=== PATIENT | female | born 1930 | race Caucasian/White ===

== ENCOUNTER 2017-09-15 13:53 | Inpatient (IN) | payer OTHER ==
[2017-09-15] MEDS ORDERED: NS 1,000 ML IV ONE (14:03)
--- NOTE | 2017-09-15 14:04 | EDPHY ---
H & P Source: Patient, EMS Exam Limitations: No limitations Departure - Departure Referrals: NONE *PRIMARY CARE P,. [Primary Care Provider] - As per Instructions
--- NOTE | 2017-09-15 14:19 | EDPHY ---
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 When they went back around noon they found her sitting in the kitchen staring off into space and she did not remember the previous visit. 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 She is A&O to person and place but not time. She denies having pain or injury. She denies chest pain or shortness of breath. She denies headache or trauma. She denies fevers. No obvious rashes or wounds. No focal deficits. REVIEW OF SYSTEMS: Unable to obtain secondary to condition EXAM: GENERAL: Thin and in no acute distress. HEAD: Atraumatic, normocephalic. EYES: Pupils equal round and reactive to light, extraocular movements intact, sclera anicteric, conjunctiva are normal. ENT: TMs normal, nares patent, oropharynx clear without exudates. Moist mucous membranes. NECK: Normal range of motion, supple without lymphadenopathy or JVD. LUNGS: Breath sounds clear to auscultation bilaterally and equal. No wheezes rales or rhonchi. HEART: Regular rate and rhythm without murmurs, rubs or gallops. ABDOMEN: Soft, nontender, normoactive bowel sounds. No guarding, no rebound. No masses appreciated. BACK: No CVA tenderness, no spinal tenderness, step-offs or deformities EXTREMITIES: Normal range of motion, no pitting or edema. No clubbing or cyanosis. NEUROLOGICAL: Oriented times person and place only. Trouble answering most questions Cranial nerves II through XII grossly intact. Normal speech. 5/5 strength, normal movement in all extremities, normal sensation PSYCH: Normal mood, normal affect. SKIN: Warm, dry, normal turgor, no visible rashes or lesions. Source: Patient Exam Limitations: No limitations - Personal History Current Tetanus Diphtheria and Acellular Pertussis (TDAP): Unsure - Medical/Surgical History Hx Asthma: No Hx Chronic Respiratory Disease: No Hx Diabetes: No Hx Cardiac Disease: No Hx Renal Disease: No Hx Cirrhosis: No Hx Alcoholism: No Hx HIV/AIDS: No Hx Splenectomy or Spleen Trauma: No Other PMH: HTN, dementia - Family History Significant Family History: No pertinent family hx - Social History Smoking Status: Never smoked Alcohol Use: Sober Drug Use: None Constitutional: Initial Vital Signs Temperature (C) 36.6 C 09/15/17 14:11 Heart Rate 64 09/15/17 14:11 Respiratory Rate 18 09/15/17 14:11 Blood Pressure 139/85 H 09/15/17 14:11 O2 Sat (%) 94 09/15/17 14:11 O2 Delivery Mode Room Air Allergies/Adverse Reactions: Penicillins Allergy (Verified 09/15/17 14:10) Home Medications: Medication Instructions Recorded Amlodipine Besylate 09/15/17 Atorvastatin Calcium 09/15/17 Levothyroxine 09/15/17 Medical Decision Making - Diagnostics EKG Interpretation: An EKG obtained and was read and documented in trace view. Please see trace view for full reading and report. Sinus rhythm, first-degree block, no acute ischemic changes or arrhythmia no previous for comparison Imaging Results: Imaging Impressions Chest X-Ray 09/15/17 14:03 Impression: 1. Possible cardiomegaly without failure. Marissa routine PA upright chest x-ray in the department, when the patient is clinically able, to better evaluate the heart size. 2. Airways disease. No pneumonia. 3. Atherosclerosis. 4. Severe focal scoliosis at the thoracic lumbar junction of unknown chronicity. Head CT 09/15/17 15:56 Impression: Advanced senescent features with no acute intracranial abnormality identified on this unenhanced CT evaluation. If there is further clinical concern regarding the patient's symptoms, MR imaging is suggested, if not otherwise contraindicated. Findings were discussed with RACH DUARTE MD at 16:59, on 09/15/2017. Imaging: Discussed imaging studies w/ director private music therapy [employer] Radiologist ED Course/Re-evaluation: 5:15 p.m. I discussed the case with Dr. Zheng who will admit for altered mental status. No source of infection has been found at this point. Differential Diagnosis: Partial list of the Differential diagnosis considered include but were not limited to; altered mental status, infection, generalized weakness, electrolyte abnormality and although unlikely based on the history and physical exam, I also considered intracranial hemorrhage, CVA, acute coronary disease. - Data Points Laboratory Results: Laboratory Results 09/15/17 14:28 09/15/17 14:28 09/15/17 09/15/17 09/15/17 15:21 14:28 14:28 WBC RBC Hgb Hct MCV MCH MCHC RDW Plt Count MPV Neut % (Auto) Lymph % (Auto) [place] % (Auto) Eos % (Auto) Baso % (Auto) Nucleat RBC Rel Count Absolute Neuts (auto) Absolute Lymphs (auto) Absolute Monos (auto) Absolute Eos (auto) Absolute Basos (auto) Absolute Nucleated RBC Immature Gran % Immature Gran # PT INR APTT Sodium Potassium Chloride Carbon Dioxide Anion Gap BUN Creatinine Estimated GFR Glucose Calcium Total Bilirubin Conjugated Bilirubin Unconjugated Bilirubin AST ALT Alkaline Phosphatase Troponin I 0.013 ng/mL ng/mL (0.000-0.034) Total Protein Albumin TSH 2.650 uIU/mL uIU/mL (0.465-4.680) Free T4 1.52 ng/dL ng/dL (0.59-2.19) Urine Color PALE YELLOW Urine Appearance CLEAR Urine pH 7.0 (5.0-7.5) Ur Specific [place] 1.006 (1.002-1.030) Urine Protein NEGATIVE (NEGATIVE) Urine Ketones NEGATIVE (NEGATIVE) Urine Blood NEGATIVE (NEGATIVE) Urine Nitrate NEGATIVE (NEGATIVE) Urine Bilirubin NEGATIVE (NEGATIVE) Urine Urobilinogen NEGATIVE EU EU (0.2-1.0) Ur Leukocyte Esterase NEGATIVE (NEGATIVE) Urine RBC NONE SEEN /hpf /hpf (0-3) Urine WBC NONE SEEN /hpf /hpf (0-3) Ur Epithelial Cells NONE SEEN /lpf /lpf (NONE-1+) Urine Glucose NEGATIVE (NEGATIVE) 09/15/17 09/15/17 09/15/17 14:28 14:28 14:28 WBC 6.84 10^3/uL 10^3/uL (3.80-9.50) RBC 4.66 10^6/uL 10^6/uL (4.18-5.33) Hgb 16.0 g/dL g/dL (12.6-16.3) Hct 45.6 % % (38.0-47.0) MCV 97.9 fL fL (81.5-99.8) MCH 34.3 pg H pg (27.9-34.1) MCHC 35.1 g/dL g/dL (32.4-36.7) RDW 11.5 % % (11.5-15.2) Plt Count 176 10^3/uL 10^3/uL (150-400) MPV 9.8 fL fL (8.7-11.7) Neut % (Auto) 74.3 % H % (39.3-74.2) Lymph % (Auto) 12.0 % L % (15.0-45.0) [place] % (Auto) 7.7 % % (4.5-13.0) Eos % (Auto) 5.0 % % (0.6-7.6) Baso % (Auto) 0.7 % % (0.3-1.7) Nucleat RBC Rel Count 0.0 % % (0.0-0.2) Absolute Neuts (auto) 5.08 10^3/uL 10^3/uL (1.70-6.50) Absolute Lymphs (auto) 0.82 10^3/uL L 10^3/uL (1.00-3.00) Absolute Monos (auto) 0.53 10^3/uL 10^3/uL (0.30-0.80) Absolute Eos (auto) 0.34 10^3/uL 10^3/uL (0.03-0.40) Absolute Basos (auto) 0.05 10^3/uL 10^3/uL (0.02-0.10) Absolute Nucleated RBC 0.00 10^3/uL 10^3/uL (0-0.01) Immature Gran % 0.3 % % (0.0-1.1) Immature Gran # 0.02 10^3/uL 10^3/uL (0.00-0.10) PT 13.5 SEC SEC (12.0-15.0) INR 1.04 (0.83-1.16) APTT 29.6 SEC SEC (23.0-38.0) Sodium 136 mEq/L mEq/L (134-144) Potassium 4.1 mEq/L mEq/L (3.5-5.2) Chloride 96 mEq/L L mEq/L (97-110) Carbon Dioxide 27 mEq/l mEq/l (22-31) Anion Gap 13 mEq/L mEq/L (8-16) BUN 18 mg/dL mg/dL (7-23) Creatinine 1.0 mg/dL mg/dL (0.6-1.0) Estimated GFR 53 Glucose 117 mg/dL H mg/dL (70-100) Calcium 9.7 mg/dL mg/dL (8.5-10.4) Total Bilirubin 1.4 mg/dL mg/dL (0.1-1.4) Conjugated Bilirubin 0.0 mg/dL mg/dL (0.0-0.5) Unconjugated Bilirubin 1.4 mg/dL H mg/dL (0.0-1.1) AST 30 IU/L IU/L (14-46) ALT 28 IU/L IU/L (9-52) Alkaline Phosphatase 65 IU/L IU/L (38-126) Troponin I Total Protein 6.6 g/dL g/dL (6.3-8.2) Albumin 4.2 g/dL g/dL (3.5-5.0) TSH Free T4 Urine Color Urine Appearance Urine pH Ur Specific [place] Urine Protein Urine Ketones Urine Blood Urine Nitrate Urine Bilirubin Urine Urobilinogen Ur Leukocyte Esterase Urine RBC Urine WBC Ur Epithelial Cells Urine Glucose Medications Given: Discontinued Medications Sodium Chloride (Ns) 1,000 mls @ 0 mls/hr IV ONCE ONE; Wide Open PRN Reason: Protocol Stop: 09/15/17 14:04 Last Admin: 09/15/17 14:27 Dose: 1,000 mls Departure - Departure Disposition: [facility] Inpatient Acute Clinical Impression: Generalized weakness Altered mental status Qualifiers: Altered mental status type: unspecified Qualified Code(s): R41.82 - Altered mental status, unspecified Condition: Fair
[2017-09-15 14:37] LABS: % IMMATURE GRANULYOCYTES 0.3 % (0.0-1.1); ABSOLUTE IMMATURE GRANULOCYTES 0.02 10^3/uL (0.00-0.10); ADD DIFF? NO; ADD MORPH? NO; ADD SCAN? NO; ATYPICAL LYMPHOCYTE FLAG 0 (0-99); FRAGMENT RBC FLAG 0 (0-99); HEMATOCRIT 45.6 % (38.0-47.0); LEFT SHIFT FLG 0 (0-99); LIPEMIA HEMOLYSIS FLAG 90 (0-99); MEAN CELL HEMOGLOBIN 34.3 pg (27.9-34.1); MEAN CELL HEMOGLOBIN CONCENTR. 35.1 g/dL (32.4-36.7); MEAN CELL VOLUME 97.9 fL (81.5-99.8); MEAN PLATELET VOLUME 9.8 fL (8.7-11.7); PLATELET CLUMPS FLAG 0 (0-99); PLATELET COUNT 176 10^3/uL (150-400); RED BLOOD CELL COUNT 4.66 10^6/uL (4.18-5.33); RED CELL DISTRIBUTION WIDTH 11.5 % (11.5-15.2)
--- NOTE | 2017-09-15 14:38 | CPEKG ---
Heart Rate: 64 RR Interval: 938 P-R Interval: 224 QRSD Interval: 86 QT Interval: 456 QTC Interval: 471 P [place]: -15 QRS [place]: 156 T Wave [place]: 4 EKG Severity - ABNORMAL ECG - EKG Impression: SINUS RHYTHM EKG Impression: FIRST DEGREE AV BLOCK EKG Impression: LEFT POSTERIOR FASCICULAR BLOCK EKG Impression: ANTERIOR INFARCT, OLD Electronically Signed By: Gabriel Gore 15-Sep-2017 14:39:25
[2017-09-15 14:46] LABS: ALANINE AMINOTRANSFERASE 28 IU/L (9-52); ALBUMIN 4.2 g/dL (3.5-5.0); ALKALINE PHOSPHATASE 65 IU/L (38-126); ANION GAP 13 mEq/L (8-16); ASPARTATE AMINOTRANSFERASE 30 IU/L (14-46); BILIRUBIN,TOTAL 1.4 mg/dL (0.1-1.4); BILIRUBIN-UNCONJUGATED 1.4 mg/dL (0.0-1.1); CALCIUM 9.7 mg/dL (8.5-10.4); CARBON DIOXIDE 27 mEq/l (22-31); CHLORIDE 96 mEq/L (97-110); GLOMERULAR FILTRATION RATE 53; GLUCOSE 117 mg/dL (70-100); POTASSIUM 4.1 mEq/L (3.5-5.2); SODIUM 136 mEq/L (134-144); TOTAL PROTEIN 6.6 g/dL (6.3-8.2)
[2017-09-15 14:47] LABS: INR 1.04 (0.83-1.16); PROTIME(PATIENT) 13.5 SEC (12.0-15.0)
[2017-09-15 14:48] LABS: APTT 29.6 SEC (23.0-38.0)
[2017-09-15 15:33] LABS: COLOR PALE YELLOW; LEUKOCYTE ESTERASE,URINE NEGATIVE (NEGATIVE); NITRITE,URINE NEGATIVE (NEGATIVE)
[2017-09-15 15:40] LABS: RBC,URINE NONE SEEN /hpf (0-3); WBC,URINE NONE SEEN /hpf (0-3)
[2017-09-15] MEDS ORDERED: ONDANSETRON DISINTEGRATING 4 MG TAB PO PRN (17:22)
[2017-09-15] MEDS ORDERED: ACETAMINOPHEN 325 MG TAB PO PRN (17:22)
[2017-09-15] MEDS ORDERED: ONDANSETRON 4 MG/2 ML VIAL IVP PRN (17:22)
[2017-09-15] MEDS: NS 1,000 ML IV SCH (19:02)
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
[2017-09-15] MEDS: ATORVASTATIN CALCIUM 10 MG TAB PO SCH (20:42)
[2017-09-15] MEDS: MELATONIN 3 MG TAB PO SCH (20:42)
[2017-09-16 04:48] LABS: % IMMATURE GRANULYOCYTES 0.4 % (0.0-1.1); ABSOLUTE IMMATURE GRANULOCYTES 0.02 10^3/uL (0.00-0.10); ADD DIFF? NO; ADD MORPH? NO; ADD SCAN? NO; ATYPICAL LYMPHOCYTE FLAG 10 (0-99); FRAGMENT RBC FLAG 0 (0-99); HEMATOCRIT 38.4 % (38.0-47.0); HEMOGLOBIN 13.3 g/dL (12.6-16.3); LEFT SHIFT FLG 0 (0-99); LIPEMIA HEMOLYSIS FLAG 90 (0-99); MEAN CELL HEMOGLOBIN 34.1 pg (27.9-34.1); MEAN CELL HEMOGLOBIN CONCENTR. 34.6 g/dL (32.4-36.7); MEAN CELL VOLUME 98.5 fL (81.5-99.8); MEAN PLATELET VOLUME 9.7 fL (8.7-11.7); PLATELET CLUMPS FLAG 0 (0-99); PLATELET COUNT 151 10^3/uL (150-400); RED CELL DISTRIBUTION WIDTH 11.5 % (11.5-15.2)
[2017-09-16 04:53] LABS: ALANINE AMINOTRANSFERASE 32 IU/L (9-52); ALBUMIN 2.9 g/dL (3.5-5.0); ALKALINE PHOSPHATASE 49 IU/L (38-126); ANION GAP 7 mEq/L (8-16); ASPARTATE AMINOTRANSFERASE 27 IU/L (14-46); BILIRUBIN,TOTAL 0.7 mg/dL (0.1-1.4); CALCIUM 8.3 mg/dL (8.5-10.4); CARBON DIOXIDE 24 mEq/l (22-31); CHLORIDE 105 mEq/L (97-110); CREATININE 0.9 mg/dL (0.6-1.0); GLOMERULAR FILTRATION RATE 59; GLUCOSE 90 mg/dL (70-100); MAGNESIUM 1.6 mg/dL (1.6-2.3); POTASSIUM 3.8 mEq/L (3.5-5.2); SODIUM 136 mEq/L (134-144); TOTAL PROTEIN 4.9 g/dL (6.3-8.2)
[2017-09-16] MEDS: NS 1,000 ML IV SCH (06:39)
[2017-09-16] MEDS: ASPIRIN EC 81 MG TAB PO SCH (08:04)
[2017-09-16] MEDS: ENOXAPARIN 40 MG/0.4 ML SYR SC SCH ×2 (08:04→08:08)
[2017-09-16] MEDS: LEVOTHYROXINE 50 MCG TAB PO SCH (08:04)
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
--- NOTE | 2017-09-16 10:35 | HOSPPROG ---
Hospitalist Progress Note Assessment/Plan: 86-year-old female presents with acute on chronic encephalopathy rendering her unable to complete activities of daily living. First encounter, chart reviewed. D/W CM and RN. Plan: 1. Acute on chronic encephalopathy. unclear etiol pt requires almost 24 hour care at home anisocoria is chronic unable to perform MRI carotid ultrasounds stable physical, occupational, cognitive therapy evaluations likely the patient will require half-way facility placement 2. Hypertension. Continue home medication, amlodipine 3. Solitary kidney with chronic kidney disease stage 3. Creatinine currently 1.0, follows Dr. Romel Barajas as an outpatient, provided IV fluids creatinine level stable 4. Chronic hyponatremia. currently normal Diet. Regular as tolerated Prophylaxis. High risk patient, Lovenox 40 Code. Full at present, the patient's MD POA is Adeline Colon, and patient has no family available, unclear if she has an advance directive on file w/ PCP Disposition. Anticipated discharge uncertain this time, anticipated length stay greater than 48 hours for reasonable medical necessity including acute on chronic encephalopathy rendering the patient unable to complete activities of daily living, unsafe for discharge to lower level of care, unclear as to the exact cause and requiring further workup as outlined above. Subjective: Up in chair. Confused. No pain. No complaints. Objective: Vital Signs Temp Pulse Resp BP Pulse Ox 36.8 C 66 20 146/90 H 93 09/16/17 07:31 09/16/17 07:31 09/16/17 07:31 09/16/17 07:31 09/16/17 07:31 Laboratory Results 09/16/17 04:20 09/16/17 04:20 09/15/17 09/16/17 09/17/17 05:59 05:59 05:59 Intake Total 941 Output Total 1325 400 Balance -1325 541 PT 13.5 SEC (12.0-15.0) 09/15/17 14:28 INR 1.04 (0.83-1.16) 09/15/17 14:28 - Physical Exam Constitutional: appears nourished, not in pain, chronically ill appearing Eyes: PERRL, anicteric sclera, EOMI Ears, Nose, Mouth, Throat: moist mucous membranes, hearing normal, ears appear normal Cardiovascular: regular rate and rhythym, No JVD, No edema Respiratory: no respiratory distress, no rales or rhonchi, reduced air movement Gastrointestinal: normoactive bowel sounds, No tenderness, No ascites Skin: warm, normal color, No erythema Musculoskeletal: normal joint ROM, no joint effusions, generalized weakness Neurologic: No AAOx3 Psychiatric: not anxious, poor insight, poor judgement, poor memory, No thought process linear ICD10 Worksheet Patient Problems: Problems Problem Status Onset Altered mental status Acute Generalized weakness Acute
--- NOTE | 2017-09-16 10:59 | ASMTCASEMG ---
Living Arrangements What is your living Answers: Alone arrangement? Who do you live with? Type Of Residence What kind of residence do Answers: House you live in? Discharge Plan Comments Coordination Status Comments Notes: CM spoke w/ Bryce Lopez SENIOR ACCOUNT EXECUTIVE and Dasia, physical therapist regarding d/c POC. The plan is 24hr supervision. Pt is a 84 y/o female admitted for AMS and generalized weakness. CM met w/ pt and her friend, Florencia for dispo planning. Florencia reports that pts friend, Мария has been taking care of her for the past year. Мария helps pt out 2-3x a day for 2-3 hours. CM left a msg for Мария P#: [phone] and requested a call back. Florencia reports seeing a mental status change analyst a year ago. Pt lives in a story home. Pt has a walk in shower and uses a cane to ambulate. CM spoke w/ JACOB Lr on the phone (P#: [phone]) regarding pts d/c needs. CANDY provided Adeline w/ a list of non skilled HC. Adeline will let CANDY know which company she goes w/ as soon as she decides. CANDY to follow. Date Signed: 09/16/2017 10:59 AM Electronically Signed By:ALMAS Cassidy
[2017-09-16] MEDS: MELATONIN 3 MG TAB PO SCH (20:02)
[2017-09-16] MEDS: ATORVASTATIN CALCIUM 10 MG TAB PO SCH (20:02)
[2017-09-17] MEDS: LEVOTHYROXINE 50 MCG TAB PO SCH (06:00)
[2017-09-17] MEDS: ASPIRIN EC 81 MG TAB PO SCH (09:49)
[2017-09-17] MEDS: ENOXAPARIN 40 MG/0.4 ML SYR SC SCH (09:49)
--- NOTE | 2017-09-17 11:28 | HOSPPROG ---
Hospitalist Progress Note Assessment/Plan: 86-year-old female presents with acute on chronic encephalopathy rendering her unable to complete activities of daily living. D/W CM and RN. Plan: 1. Acute on chronic encephalopathy. unclear etiol, no signs of infection, possible dehydration pt requires almost 24 hour care at home, baseline anisocoria is chronic unable to perform MRI carotid ultrasounds stable physical, occupational, cognitive therapy evaluations the patient will require long-term facility placement 2. Hypertension. Continue home medication, amlodipine 3. Solitary kidney with chronic kidney disease stage 3. Creatinine currently 1.0, follows Dr. Romel aBrajas as an outpatient, provided IV fluids creatinine level stable 4. Chronic hyponatremia. currently normal Diet. Regular as tolerated Prophylaxis. High risk patient, Lovenox 40 Code. Full at present, the patient's MD POA is Adeline Colon, and patient has no family available, unclear if she has an advance directive on file w/ PCP Disposition. Anticipated discharge uncertain this time, Will need snf rehab Subjective: Up in chair. Confused. No pain. Objective: Vital Signs Temp Pulse Resp BP Pulse Ox 36.6 C 67 20 159/77 H 93 09/17/17 11:02 09/17/17 11:02 09/17/17 11:02 09/17/17 11:02 09/17/17 11:02 Laboratory Results 09/16/17 04:20 09/16/17 04:20 09/16/17 09/17/17 09/18/17 05:59 05:59 05:59 Intake Total 1413 1390 Output Total 1325 1550 1950 Balance -1325 -137 -560 PT 13.5 SEC (12.0-15.0) 09/15/17 14:28 INR 1.04 (0.83-1.16) 09/15/17 14:28 - Physical Exam Constitutional: appears nourished, chronically ill appearing Eyes: PERRL, anicteric sclera Ears, Nose, Mouth, Throat: moist mucous membranes, hearing normal Cardiovascular: No JVD, No edema Respiratory: no respiratory distress, clear to auscultation Gastrointestinal: No tenderness, No ascites Skin: warm, normal color Musculoskeletal: no joint effusions, generalized weakness Neurologic: No AAOx3 Psychiatric: not anxious, poor insight, poor judgement, poor memory, No thought process linear ICD10 Worksheet Patient Problems: Problems Problem Status Onset Altered mental status Acute Generalized weakness Acute
--- NOTE | 2017-09-17 15:02 | ASMTCMCOM ---
CM Note CM Note Notes: PT and OT are recommending SNF. Pt is not decisional at this time. CM called pts medical decision maker, Adeline and informed her that therapies are recommending SNF. Adeline would like pt to go to a SNF at this time. Adeline would like pt to stay in [place]. Adeline requested referrals to be made to [facility] and [facility]. CM sent referrals to both facilities. [facility] has accepted and [facility] is pending acceptance. CM completed PASRR. Pts watch parts grinderChalino came in to meet w/ pt. Chalino left CM w/ his phone number, P#: [phone]. CM left a msg w/ APS and requested a call back. CM spoke w/ KACY Lopez regarding d/c POC. Pt is in need of a POA to manage her fiances. CM spoke w/ Мария, her friend that is a caregiver and provided updates. CM to follow. Plan: SNF; [facility] Date Signed: 09/17/2017 03:02 PM Electronically Signed By:ALMAS Cassidy
[2017-09-17] MEDS: ATORVASTATIN CALCIUM 10 MG TAB PO SCH (20:14)
[2017-09-17] MEDS: MELATONIN 3 MG TAB PO SCH (20:14)
[2017-09-18] MEDS: LEVOTHYROXINE 50 MCG TAB PO SCH (06:25)
[2017-09-18] MEDS: ENOXAPARIN 40 MG/0.4 ML SYR SC SCH (08:44)
[2017-09-18] MEDS: ASPIRIN EC 81 MG TAB PO SCH (08:44)
--- NOTE | 2017-09-18 11:19 | PDIAF ---
- Diagnosis Diagnosis: ams Code Status: Full Code - Medication Management Discharge Medications: Medications to Continue on Transfer Aspirin EC [Aspirin EC 81 mg (*)] 81 mg PO DAILY 09/15/17 [Last Taken Unknown] Atorvastatin Calcium [Lipitor 10 mg (*)] 10 mg PO HS 09/15/17 [Last Taken Unknown] Levothyroxine [Synthroid 50 mcg (*)] 50 mcg PO DAILY06 09/15/17 [Last Taken Unknown] amLODIPine BESYLATE [Norvasc 2.5 mg (*)] 2.5 mg PO DAILY 09/15/17 [Last Taken Unknown] Acetaminophen [Tylenol 325mg (*)] 650 mg PO Q4HRS PRN tab 09/18/17 [Last Taken Unknown] Melatonin [Melatonin 3 MG (*)] 3 mg PO HS tab 09/18/17 [Last Taken Unknown] Discharge Medications: Refer to the Discharge Home Medication list for PRN reason. PICC Care - Routine: N/A - Orders Services needed: Registered Nurse, Physical Therapy, Occupational Therapy Diet Recommendation: no restrictions on diet - Follow Up Care Current Providers and Referrals: NONE *PRIMARY CARE P,. [Primary Care Provider] - As per Instructions
--- NOTE | 2017-09-18 11:26 | ASMTCMCOM ---
CM Note CM Note Notes: Per MD patient is medically ready for discharge. Bed arranged at [facility]. IM completed via medical proxy Adeline Connie over the phone. Orders sent via [employer]. Will arrange transport through [facility]. Date Signed: 09/18/2017 11:25 AM Electronically Signed By:Alis Obando RN
[2017-09-18 11:29] VITALS: BP 155/81; PULSE 72; RESP 14; TEMP 98; O2SAT 92
--- NOTE | 2017-09-18 13:36 | GDS ---
[f rep st] DISCHARGE SUMMARY DISCHARGE DIAGNOSES: 1. Acute encephalopathy. 2. Failure to thrive. 3. Dementia. 4. Hypertension. 5. History of solitary kidney, with chronic kidney disease stage 3. PHYSICAL EXAM: GENERAL: The patient is alert, and up in the chair. VITAL SIGNS: Afebrile at 36.7, pulse is 72, respiratory rate is 14, blood pressure is 155/81, saturating 92% on room air. I have seen and evaluated the patient on the day of discharge. HOSPITAL COURSE: Ms. Griffith is an 87-year-old female, who has previously been residing [facility] with the assistance of friends and family. They felt that her mentation was altered more than no rmal and was presented to the emergency room. During this hospitalization, she was admitted and diag nosed with: 1. Acute encephalopathy. The patient is likely at her baseline mentation, with increasing dementia and failure to thrive. She will require care home facility placement at the time of dispositio n. 2. Her other medical problems including her hypertension and her kidney disease are stable during [facility] hospitalization. She has no signs of infection. FOLLOWUP: She will follow up in the outpatient setting with her primary care physician, and continue rehabilitation at care home. I have discussed the patient's disposition with the manager case. DISCHARGE MEDICATIONS: Please refer to EMR form. I have not adjusted the patient's previously presc ribed home medications. To the best of my knowledge, I spent greater than 35 minutes in the care, coordination, and managemen t of the patient's disposition. /[id number]/MODL
--- NOTE | 2017-09-18 14:33 | ASDISCHSUM ---
Discharge Information Plan Status:SNF Medically Cleared to Leave: Discharge Date:09/18/2017 12:56 PM D/C Disposition:Intermediate Facility ADT D/C Disposition:Intermediate Facility Projected Discharge Date:09/18/2017 11:00 AM Transportation at D/C:Wheelchair Van Discharge Delay Reason: Follow-Up Date:09/18/2017 11:00 AM Discharge Slot: Final Diagnosis: Placement Information Referral Type:*Fdc/SNF Referral ID:[id number] Provider Name:[facility] Address 1:[address] Address 2: City:[place] Selection Factors: State:[place] Patient Contact Information Contact Name:NEEMA Relationship:Other Address: Work Phone: City: [facility] Phone: [facility] Code: Email: Financial Information Financial Class: Primary Plan Desc:MEDICARE OUTPATIENT Primary Plan Number:[id number] Secondary Plan Desc:ALBERT DAVIS TIMBI-SHA SHOSHONE Secondary Plan Number:[id number] Assessment Information LACE LACE Acuity / Level of Care Answers: Was the patient admitted to hospital via the emergency department? Yes: Comorbidities - select Answers: Dementia all that apply Emergency dept visits in Answers: 1 last 6 months Score: 7 Date Signed: 09/15/2017 04:57 PM Electronically Signed By:Antonia Bueno RN [facility] Initial CM Assessment Living Arrangements What is your living Answers: Alone arrangement? Who do you live with? Type Of Residence What kind of residence do Answers: House you live in? Discharge Plan Comments Coordination Status Comments Notes: CM spoke w/ Bryce Lopez, SUPERVISOR ENGINES ROAD and Dasia, physical therapist regarding d/c POC. The plan is 24hr supervision. Pt is a 84 y/o female admitted for AMS and generalized weakness. CM met w/ pt and her friend, Florencia for dispo planning. Florencia reports that pts friend, Мария has been taking care of her for the past year. Мария helps pt out 2-3x a day for 2-3 hours. CM left a msg for Мария P#: [phone] and requested a call back. Florencia reports seeing a mental status changer fixer a year ago. Pt lives in a story home. Pt has a walk in shower and uses a cane to ambulate. CM spoke w/ JACOB Lr on the phone (P#: [phone]) regarding pts d/c needs. CANDY provided Adeline w/ a list of non skilled HC. Adeline will let CM know which company she goes w/ as soon as she decides. CANDY to follow. Date Signed: 09/16/2017 10:59 AM Electronically Signed By:ALMAS Cassidy [facility] Progress Note CM Note CM Note Notes: PT and OT are recommending SNF. Pt is not decisional at this time. CM called pts medical decision maker, Adeline and informed her that therapies are recommending SNF. Adeline would like pt to go to a SNF at this time. Adeline would like pt to stay in [place]. Adeline requested referrals to be made to [facility] and [facility]. CANDY sent referrals to both facilities. [facility] accepted and [facility] is pending acceptance. CM completed PASRR. Pts Chalino watts came in to meet w/ pt. Chalino left CM w/ his phone number, P#: [phone]. CM left a msg w/ APS and requested a call back. CM spoke bandar Lopez NP regarding d/c POC. Pt is in need of a POA to manage her fiances. CM spoke wDalia Мария, her friend that is a caregiver and provided updates. CM to follow. Plan: SNF; either [facility] Date Signed: 09/17/2017 03:02 PM Electronically Signed By:ALMAS Cassidy [facility] Progress Note CM Note CM Note Notes: Per MD patient is medically ready for discharge. Bed arranged at [facility]. IM completed via medical proxy Adeline Rosales over the phone. Orders sent via [employer]. Will arrange transport through [facility]. Date Signed: 09/18/2017 11:25 AM Electronically Signed By:Alis Obando RN Case Management Discharge Plan Note Case Management Discharge Discharge Order Complete? Answers: Yes Patient to Obtain Answers: Other Notes: [facility] Medications Transportation Arranged Answers: MELINA W/C Transport will Pick (Date 09/18/2017 01:00 PM & Time) Case Management Transport Answers: Yes Form Complete Faxed Final Orders Answers: Yes Agency/Facility Transfer Answers: Yes Report Printed & Faxed to Receiving Agency Family Notified Answers: Yes Intervention Information Intervention Type:*CALL-Signed Date of Service:09/16/2017 10:50 AM Patient Type:Inpatient Staff Member:ALMAS Link Michelle Hours: Discipline: Severity: Comment:
== END 2017-09-18 12:56 | DRG 884 ==
LOC: EDBD 13:53 → F3E 18:10 → OBSVTOIN 19:07
PROVIDERS: ADMIT Internal Medicine; ATTEND Internal Medicine
DX: F03.90 Unspecified dementia, unspecified severity, without behavioral disturbance, psychotic disturbance, mood disturbance, and anxiety (principal); I12.9 Hypertensive chronic kidney disease with stage 1 through stage 4 chronic kidney disease, or unspecified chronic kidney disease; N18.3 Chronic kidney disease, stage 3 (moderate); Q60.0 Renal agenesis, unilateral
CPT/HCPCS: 92523-GN; 97110-GP; 97116-GP; 97161-GP; 97165-GO; G8978-GP-CK; G8979-GP-CI; G8987-GO-CL; G8988-GO-CJ; G9168-GN-CL; G9169-GN-CL; G9170-GN-CL; J1650